=== PATIENT | female | born 1965 | race African-American/Black ===

== ENCOUNTER 2017-07-14 17:14 | Emergency (ER) | payer OTHER ==
--- NOTE | 2017-07-14 17:24 | PDOC ---
Rapid Medical Evaluation Time Seen by Provider: 07/14/17 17:23 Medical Evaluation: Allergies Allergy/AdvReac Type Severity Reaction Status Date / Time Penicillins Allergy Rash Verified 01/24/13 15:31 07/14/17 17:51 The patient presents with a chief complaint of: Cough, headache, for two days. Some shortness of breath with exertion d/t cough and congestion. Denies fevers body aches. Would like to r/o flu I have performed a brief in-person evaluation of this patient; Pertinent physical exam findings: Nasal congestion, CTAB Temp 98.5. I have ordered the following: Influenza The patient will proceed to the ED for further evaluation.
[2017-07-14 18:01] VITALS: BP 123/44; PULSE 74; TEMP 98.5; BMI 35.6
== END 2017-07-14 19:06 | disposition left against medical advice (07) ==
LOC: JER 17:14 → JERFT 17:14
DX: R05 Cough (principal)
CPT/HCPCS: 87804; 99281-25

== ENCOUNTER 2019-04-17 16:56 | Emergency (ER) | payer OTHER ==
[2019-04-17 17:00] VITALS: BP 132/63; PULSE 72; TEMP 98; BMI 37.0
--- NOTE | 2019-04-17 17:05 | PDOC ---
Rapid Medical Evaluation Time Seen by Provider: 04/17/19 16:58 Medical Evaluation: Allergies Allergy/AdvReac Type Severity Reaction Status Date / Time Penicillins Allergy Rash Verified 04/17/19 17:01 Vital Signs Temp Pulse Resp BP Pulse Ox 98 F 72 18 132/63 98 04/17/19 16:58 04/17/19 16:58 04/17/19 16:58 04/17/19 16:58 04/17/19 16:58 04/17/19 17:03 I have performed a brief in-person evaluation of this patient. The patient presents with a chief complaint of:c/o L thumb pain and states thumb "locks up in place x 3 weeks", no trauma Pertinent physical exam findings:thumb locked in flexed position in triage and then spon resolved I have ordered the following:nothing The patient will proceed to the ED for further evaluation. Discharge Disposition - Diagnosis Thumb pain Qualifiers: Laterality: left Qualified Code(s): M79.645 - Pain in left finger(s) - Referrals - Patient Instructions - Post Discharge Activity
--- NOTE | 2019-04-17 17:23 | PDOC ---
History of Present Illness - General Chief Complaint: Pain Stated Complaint: PAIN Time Seen by Provider: 04/17/19 16:58 - History of Present Illness Initial Comments: 04/17/19 17:21 53-year-old female presents for evaluation of atraumatic left thumb pain x2 weeks no systemic symptoms. Past History - Past Medical History Allergies/Adverse Reactions: Allergies Allergy/AdvReac Type Severity Reaction Status Date / Time Penicillins Allergy Rash Verified 04/17/19 17:01 CVA: No COPD: No DVT: No - Surgical History Appendectomy: Yes - Immunization History Immunization Up to Date: Yes - Psycho Social/Smoking Cessation Hx Smoking Status: No Smoking History: Never smoked Have you smoked in the past 12 months: No Number of Cigarettes Smoked Daily: 0 If you are a former smoker, when did you quit?: 15YRS Hx Alcohol Use: No Drug/Substance Use Hx: No Substance Use Type: None Review of Systems - Review of Systems Musculoskeletal: Yes: See HPI, Joint Pain *Physical Exam - Vital Signs Last Vital Signs Temp Pulse Resp BP Pulse Ox 98 F 72 18 132/63 98 04/17/19 16:58 04/17/19 16:58 04/17/19 16:58 04/17/19 16:58 04/17/19 16:58 - Physical Exam Comments: 04/17/19 17:21 Trigger at the IPJ of the left thumb normal skin color temperature tenderness over the A1 rossy neurovascularly intact free of any gross sensorimotor deficits. Medical Decision Making - Medical Decision Making 04/17/19 17:22 Refer to hand surgery for trigger finger Discharge - Discharge Information Problems reviewed: Yes Clinical Impression/Diagnosis: Trigger thumb of left hand Thumb pain Qualifiers: Laterality: left Qualified Code(s): M79.645 - Pain in left finger(s) Condition: Stable Disposition: HOME - Admission No - Follow up/Referral Referrals: Sherrie Shaffer MD [Primary Care Provider] - Wang Doyle MD [Staff Physician] - - Patient Discharge Instructions Additional Instructions: Return to the emergency room for worsening symptoms. Tylenol as directed for pain. Follow-up with hand surgery in 1 to 2 days for further evaluation and treatment options. - Post Discharge Activity
== END 2019-04-17 17:41 | disposition home or self-care (01) ==
LOC: JERFT 16:56
DX: M65.312 Trigger thumb, left thumb (principal); Z88.0 Allergy status to penicillin
CPT/HCPCS: 99281-25